=== PATIENT | male | born 1990 ===

== ENCOUNTER 2019-06-17 01:55 | Emergency (ER) | payer SELFPAY ==
--- NOTE | 2019-06-17 02:10 | ED ---
Neurological HPI - HPI Summary HPI Summary: Patient is a 29 y/o M presenting to [facility] with complaints of right eye leakage, right eye not shutting, facial droop, and slurred speech. He states that he believes that his Sx may have been present for about a week but first noticed them at around 2100 06/16/19. Patient notes that, over the past week, he would have some leakage from the side of his mouth when he would drink water. He denies any other visual changes and any other focal weakness. PMHx and daily medications are denied. Bruno candelario was called on overhead at 0158 from triage, Dr. Argueta evaluated the patient immediately. 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 Co-worker is present with the patient. - History of Current Complaint Stated Complaint: EYE ISNT BLINKING PER PT Hx Obtained From: Patient Onset/Duration: Still Present Timing: Constant Neurological Deficit Location: Facial Pain Intensity: 0 Pain Scale Used: 0-10 Numeric Character: Impaired Speech, Other: - facial droop, eye not blinking Associated Signs and Symptoms: Positive: Weakness - facial, right; right eye not closing, Impaired Speech - Allergy/Home Medications Allergies/Adverse Reactions: Allergies Allergy/AdvReac Type Severity Reaction Status Date / Time No Known Allergies Allergy Verified 06/17/19 02:22 PMH/Surg Hx/FS Hx/Imm Hx Endocrine/Hematology History: Denies: Hx Diabetes, Hx Thyroid Disease Cardiovascular History: Denies: Hx Hypertension Respiratory History: Denies: Hx Asthma, Hx Chronic Obstructive Pulmonary Disease (COPD) GI History: Denies: Hx Ulcer Infectious Disease History: No Infectious Disease History: Denies: Hx Hepatitis, Hx Human Immunodeficiency Virus (HIV), Traveled Outside the [place] in Last 30 Days - Family History Known Family History: Negative: Cardiac Disease, Hypertension, Diabetes - Social History Alcohol Use: None Substance Use Type: Reports: None Smoking Status (MU): Never Smoked Tobacco Review of Systems Eyes: Other - positive - right eye not closing, no other visual changes Positive: Drainage - right eye leakage Neurological: Other - positive - right facial droop, no other weakness Positive: Slurred Speech All Other Systems Reviewed And Are Negative: Yes Physical Exam - Summary Physical Exam Summary: Appearance: Well-appearing, Well-nourished, lying in bed comfortably Skin: Warm, dry, no obvious rash Eyes: sclera anicteric, no conjunctival pallor ENT: mucous membranes moist, pharynx appears normal Neck: Supple, nontender Respiratory: Clear to auscultation, no signs of respiratory distress Cardiovascular: Normal S1, S2. No murmurs. Normal distal pulses in tibial and radial bilaterally. Abdomen: Soft, nontender, normal active bowel sounds present Musculoskeletal: Normal, Strength/ROM Intact, Motor function in all 4 extremities is normal and symmetric. There is no rigidity or tremor noted. Neurological Exam: A&Ox3, awake and alert, mentation is normal, speech is fluent and appropriate, Level of consciousness nml. The patient is alert and oriented. Patient has a fairly dense facial paresis to the right that involves the forehead consistent with a peripheral Roman's Palsy. Gaze is conjugate and without nystagmus. Peripheral vision is intact to confrontation. There are no gross sensory abnormalities to light touch. There is no truncal or fine motor ataxia. Gait is normal. NIH 1. GCS 15. Psychiatric: affect is normal, does not appear anxious or depressed Triage Information Reviewed: Yes Vital Signs On Initial Exam: Initial Vitals Temp Pulse Resp BP Pulse Ox 97.5 F 95 18 169/109 97 06/17/19 01:56 06/17/19 01:56 06/17/19 01:56 06/17/19 01:56 06/17/19 01:56 Vital Signs Reviewed: Yes - Cookson Coma Scale Best Eye Response: 4 - Spontaneous Best Motor Response: 6 - Obeys Commands Best Verbal Response: 5 - Oriented Coma Scale Total: 15 Procedures - Sedation Patient Received Moderate/Deep Sedation with Procedure: No Diagnostics - Vital Signs Vital Signs Temp Pulse Resp BP Pulse Ox 06/17/19 01:56 97.5 F 95 18 169/109 97 - Laboratory Lab Statement: Any lab studies that have been ordered have been reviewed, and results considered in the medical decision making process. NIH Scale - NIH Scale Level of Consciousness: Alert/Keenly Responsive Ask Patient the Month and His/Her Age: Both Correct Ask Pt to Open/Close Eyes and [employer]/Release Non-Paretic Hand: Both Correctly Best Gaze (Only Horizontal Eye Movement): Normal Visual Field Testing: No Visual Loss Facial Paresis-Pt to Smile & Close Eyes or Grimace Symmetry: Minor Paralysis Motor Function - Right Arm: No Drift-Holds 10 Seconds Motor Function - Left Arm: No Drift-Holds 10 Seconds Motor Function - Right Leg: No Drift-Holds 10 Seconds Motor Function - Left Leg: No Drift-Holds 10 Seconds Limb Ataxia-Must be out of Proportion to Weakness Present: Absent Sensory (Use Pinprick to Test Arms/Legs/Trunk/Face): Normal Best Language (Describe Picture, Name Items): No Aphasia Dysarthria (Read Several Words): Normal Extinction and Inattention: No Abnormality Total Score: 1 Course/Dx - Course Course Of Treatment: Patient is a 29 y/o M presenting to [facility] with complaints of right eye leakage, right eye not shutting, facial droop, and slurred speech. He states that he believes that his Sx may have been present for about a week but first noticed them at around 2100 06/16/19. Patient notes that, over the past week, he would have some leakage from the side of his mouth when he would drink water. He denies visual changes and any other focal weakness. PMHx and daily medications are denied. Bruno candelario was called on overhead at 0158 from triage, Dr. Argueta evaluated the patient immediately. 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 Neurological Exam: A&Ox3, awake and alert, mentation is normal, speech is fluent and appropriate, Level of consciousness nml. The patient is alert and oriented. Patient has a fairly dense facial paresis to the right that involves the forehead consistent with a peripheral Roman's Palsy. Gaze is conjugate and without nystagmus. Peripheral vision is intact to confrontation. There are no gross sensory abnormalities to light touch. There is no truncal or fine motor ataxia. Gait is normal. NIH 1. GCS 15. 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 He was prescribed Prednisone and will follow up with neurologist. - Diagnoses Provider Diagnoses: Roman's palsy During the Visit The Following Alert/Code Occurred: Code [place] - Bruno candelario was called on overhead at 0158 from triage, Dr. Argueta evaluated the patient immediately. 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 Discharge ED - Sign-Out/Discharge Documenting (check all that apply): Patient Departure - discharge - Discharge Plan Condition: Stable Disposition: HOME Prescriptions: predniSONE TAB* [Deltasone 20 MG TAB*] 40 mg PO DAILY #14 tab Patient Education Materials: Roman Palsy (ED) Referrals: Chadd Golden MD [Medical Doctor] - - Billing Disposition and Condition Condition: STABLE Disposition: Home - Attestation Statements Document Initiated by Breezy: Yes Documenting Scribe: JACINTA MAN Provider For Whom Breezy is Documenting (Include Credential): WHITNEY ARGUETA MD Scribe Attestation: JACINTA Knott, scribed for WHITNEY ARGUETA MD on 06/21/19 at 0635. Scribe Documentation Reviewed: Yes Provider Attestation: The documentation as recorded by the JACINTA ibrahim accurately reflects the service I personally performed and the decisions made by me, WHITNEY ARGUETA MD Status of Scribe Document: Viewed
[2019-06-17 02:22] VITALS: BP 145/75
== END 2019-06-17 02:39 | disposition home or self-care (01) ==
LOC: ED 01:55
DX: G51.0 Bell's palsy (principal)
CPT/HCPCS: 36415; 86618; 99282